=== PATIENT | female | born 1975 | race Caucasian/White ===

== ENCOUNTER 2017-03-28 18:43 | Emergency (ER) | payer BC ==
[~2017-03-28] VITALS: Ht 167.6 cm; Wt 63.6 kg
[~2017-03-28 18:43] MED LIST: AMOX250C; LAMI200T PO; LEVO1CAP4 PO; LORTA5 PO
[2017-03-28 19:39] VITALS: BP 136/76; PULSE 107; RESP 20; TEMP 98.7; O2SAT 98
[2017-03-28] MEDS ORDERED: LIDOCAINE HCL 1% 50 ML VIAL INFIL ONE (19:45)
[2017-03-28] MEDS ORDERED: LEVO1CAP3 PO (19:50)
[2017-03-28] MEDS ORDERED: nasal spray (19:50)
[2017-03-28] MEDS ORDERED: LAMI200T PO (19:50)
[2017-03-28] MEDS ORDERED: SINUS MEDICATION PO (19:50)
[2017-03-28] MEDS ORDERED: ACETAMINOPHEN 325 MG TAB PO ONE (20:00)
--- NOTE | 2017-03-28 20:04 | PD ---
HPI Chief Complaint: Fall Time Seen by Provider: 19:40 Travel History International Travel<30 days: No Contact w/Intl Traveler<30days: No Traveled to known affect area: No History of Present Illness HPI 40-year-old female that presents to the ED for evaluation of fall. Patient was running around and lost her balance and landed on a wall. Per patient she hit her head on the wall. She did not loss consciousness. Patient does have abrasions to the right great toe as well as superficial abrasion to the left knee. She was able to ambulate. She denies any loss of consciousness. Takes no blood thinners. She does have a laceration to the left forehead. She was brought here by ambulance. States that she is able to move her arms and legs. Denies any back or neck pain. She states she has a headache. Per patient the pain is 7 out of 10. Does not radiate. She states that she is up-to-date with her tetanus with the past 5 years. Injury occurred about 2 hours ago. Denies any other medical issues at this time. patient states she had been drinking alcohol today. PFSH Past Medical History Bipolar Disorder: Yes Anxiety: Yes Depression: Yes Cardiovascular Problems: No Diabetes: No Diminished Hearing: No Endocrine: No Genitourinary: No Hiatal Hernia: No Musculoskeletal: No Neurologic: No Psychiatric: Yes (ANXIETY, BIPOLAR) Reproductive: No Respiratory: No Migraines: Yes Thyroid Disease: No Tetanus Vaccination: < 5 Years Influenza Vaccination: No ?: Not Tubal Ligation: Yes Past Surgical History AICD: No Joint Replacement: No Oral Surgery: Yes (WISDOM TEETH EXTRACTED) Pacemaker: No Other Surgery: Yes Social History Alcohol Use: Yes (was drinking today started at 1100) Tobacco Use: No Substance Use: Yes (HX OF SLEEPING PILL ABUSE) Allergies-Medications (Allergen,Severity, Reaction): Coded Allergies: bupropion (Unverified Allergy, Unknown, seizure, 01/27/17) Reported Meds & Prescriptions Reported Meds & Active Scripts Active Reported [nasal spray] BID [Sinus medication] PO BID Lamictal (Lamotrigine) 200 Mg Tab 200 Mg PO DAILY Fetzima ER (Levomilnacipran ER) 40 Mg Caper 40 Mg PO DAILY Review of Systems Except as stated in HPI: all other systems reviewed are Neg Physical Exam Narrative GENERAL: SKIN: Warm and dry. Patient has a superficial about 1.5 cm vertical laceration to the left forehead. HEAD: Atraumatic. Normocephalic. EYES: Pupils equal and round 4 mm reactive to light and accommodation. No scleral icterus. No injection or drainage. ENT: No nasal bleeding or discharge. Mucous membranes pink and moist. Tongue is midline. No uvula deviation. NECK: Trachea midline. No JVD. CARDIOVASCULAR: Regular rate and rhythm. No murmurs, S3, S4. RESPIRATORY: No accessory muscle use. Clear to auscultation. Breath sounds equal bilaterally. GASTROINTESTINAL: Abdomen soft, non-tender, nondistended. Hepatic and splenic margins not palpable. MUSCULOSKELETAL: Extremities without clubbing, cyanosis, or edema. No obvious deformities. Full range of motion of the upper and lower extremities bilaterally. Patient does have a very superficial skin abrasion to the left knee and able to move the knee completely without pain. 2+ pulses bilaterally. Patient also has a very superficial abrasion to the dorsal aspect of the right big toe. No lumbar, thoracic, cervical spine tenderness to palpation. NEUROLOGICAL: Awake and alert. No obvious cranial nerve deficits. Motor grossly within normal limits. Five out of 5 muscle strength in the arms and legs. Normal speech. PSYCHIATRIC: Appropriate mood and affect; insight and judgment normal. Data Data Last Documented VS Vital Signs Date Time Temp Pulse Resp B/P (MAP) Pulse Ox O2 Delivery O2 Flow Rate FiO2 03/28/17 20:34 97 Room Air 03/28/17 19:39 98.7 107 20 136/76 (96) Orders Orders Ct Brain W/O Iv Contrast(Rout) (03/28/17 19:45) Knee, Ltd (1 Or 2vws) (03/28/17 19:45) Toe (Min 2vws) (03/28/17 19:45) Ice/Cold Pack (03/28/17 19:45) Wound Care (03/28/17 19:45) Lidocaine 1% Inj (50 Ml) (Xylocaine 1% I (03/28/17 19:45) Acetaminophen (Tylenol) (03/28/17 20:00) MDM Medical Decision Making Medical Screen Exam Complete: Yes Emergency Medical Condition: Yes Medical Record Reviewed: Yes Interpretation(s) CT head negative xray left knee negative xray right big toe negative Differential Diagnosis Head injury versus laceration versus abrasion versus contusion versus fracture Narrative Course 41-year-old female that presents to the ED for evaluation of fall. Patient was properly examined and was found to have signs and symptoms concerning with fall. Imaging was ordered. Recommend suturing. Patient agrees with this plan. After explained procedure to the patient and she agreed to it laceration was repaired as stated in procedure note. Told to get sutures removed in one week. Wound care was endorsed. Imaging showed no sign of acute disease. Patient was reassured. Patient was told to do wound care. Patient was told that she will likely have some scarring even with treatment. She agrees and understands. Follow with PCP. See ED worsening symptoms. Told to get sutures removed in 7 days. She was given a prescription for bacitracin. Procedures Procedure Narrative LACERATION LOCATION: left forehead LENGTH: 1.5 cm NUMBER OF STITCHES/FAISAL: 7 sutures REPAIR: The area of the laceration was prepped with Betadine and sterilely draped. The laceration was infiltrated with 1% Xylocaine. The wound was copiously irrigated and explored without evidence of foreign body, tendon injury or neurovascular injury. The wound was closed using 5-0 Ethilone. This was a 1 layer repair. A sterile dressing was applied. The patient was advised to keep the dressing clean and dry. Patient tolerated the procedure well. Diagnosis Primary Impression: Head injury Qualified Codes: S09.90XA - Unspecified injury of head, initial encounter Additional Impressions: Laceration of head Qualified Codes: S01.112A - Laceration without foreign body of left eyelid and periocular area, initial encounter Abrasions of multiple sites Patient Instructions: General Instructions Additional Instructions: Wound care daily with soap and water. You can apply bandaid if needed. Neosporyn or OTC antibiotic ointment to area as needed twice a day for at least 2 weeks to help with scarring and prevent infection. Meoderma OTC for scarring if needed. Avoid sun exposure for 2 months as the sun could make scar darker and more noticeable. Get sutures removed in 5-7 days. See ED if worst. Med/Other Pt SpecificInfo: Prescription(s) given, Wound Care Disposition: DISCHARGE HOME Condition: Stable Fabrice Cruz Mar 28, 2017 20:04
[2017-03-28] MEDS ORDERED: BACI500O9 TOPICAL (20:43)
--- NOTE | 2017-03-28 20:52 | RADRPT ---
EXAM DATE/TIME: 03/28/2017 20:07 [facility] COMPARISON: No previous studies available for comparison. INDICATIONS : Fall, knee pain laceration to anterior knee. MEDICAL HISTORY : None. SURGICAL HISTORY : None. ENCOUNTER: Initial ACUITY: 1 day PAIN SCORE: 0/10 LOCATION: Left knee FINDINGS: Two view examination of the left knee demonstrates no evidence of fracture or dislocation. Bony mine ralization is normal. The suprapatellar soft tissues have a normal configuration. CONCLUSION: No acute bony disease or evidence of joint effusion. Ty Turner MD on March 28, 2017 at 20:49 Board Certified Radiologist. This report was verified electronically.
--- NOTE | 2017-03-28 20:53 | RADRPT ---
EXAM DATE/TIME: 03/28/2017 20:08 [facility] COMPARISON: No previous studies available for comparison. INDICATIONS : Hit great toe on wall running. MEDICAL HISTORY : None. SURGICAL HISTORY : None. ENCOUNTER: Initial ACUITY: 1 day PAIN SCORE: 0/10 LOCATION: Right 1st toe FINDINGS: Examination of the first digit of the right foot demonstrates no evidence of fracture or dislocation. No radiopaque foreign bodies are seen. The soft tissues are intact. CONCLUSION: No acute disease. Ty Turner MD on March 28, 2017 at 20:51 Board Certified Radiologist. This report was verified electronically.
--- NOTE | 2017-03-28 20:54 | RADRPT ---
EXAM DATE/TIME: 03/28/2017 20:10 [facility] COMPARISON: CT BRAIN W/O CONTRAST, December 21, 2013, 14:43. INDICATIONS : Trauma, fell and hit left side of face. Laceration to left forehead. RADIATION DOSE: 34.16 CTDIvol (mGy) MEDICAL HISTORY : None SURGICAL HISTORY : Tubal ligation. ENCOUNTER: Initial ACUITY: 1 day PAIN SCALE: 5/10 LOCATION: cranial TECHNIQUE: Multiple contiguous axial images were obtained of the head. Using automated exposure control and adj ustment of the mA and/or kV according to patient size, radiation dose was kept as low as reasonably a chievable to obtain optimal diagnostic quality images. DICOM format image data is available electro nically for review and comparison. FINDINGS: CEREBRUM: The ventricles are normal for age. No evidence of midline shift, mass lesion, hemorrhage or acute in farction. No extra-axial fluid collections are seen. POSTERIOR FOSSA: The cerebellum and brainstem are intact. The 4th ventricle is midline. The cerebellopontine angle i s unremarkable. EXTRACRANIAL: Skin laceration is identified in the left frontal region. The visualized portion of the orbits is int act. SKULL: The calvaria is intact. No evidence of skull fracture. CONCLUSION: Soft tissue laceration left frontal region. No evidence of acute intracranial process. Ty Turner MD on March 28, 2017 at 20:51 Board Certified Radiologist. This report was verified electronically.
== END 2017-03-28 21:20 | disposition home or self-care (01) ==
LOC: NEPC 18:43
DX: S09.90XA Unspecified injury of head, initial encounter (principal); S01.81XA Laceration without foreign body of other part of head, initial encounter; S90.411A Abrasion, right great toe, initial encounter; S80.212A Abrasion, left knee, initial encounter; Z86.59 Personal history of other mental and behavioral disorders; Z86.69 Personal history of other diseases of the nervous system and sense organs; W18.39XA Other fall on same level, initial encounter; Y93.02 Activity, running
CPT/HCPCS: 12011; 70450; 73560; 73660

== ENCOUNTER 2017-08-17 10:08 | Emergency (ER) | payer BC ==
[~2017-08-17] VITALS: Ht 165.1 cm; Wt 72.0 kg
[~2017-08-17 10:08] MED LIST changes: -AMOX250C; +BACI500O9 TOPICAL; +LEVO1CAP3 PO; -LEVO1CAP4 PO; -LORTA5 PO; +SINUS MEDICATION PO; +nasal spray
[2017-08-17 10:33] VITALS: BP 142/79; PULSE 92; RESP 15; TEMP 98.8; O2SAT 99
--- NOTE | 2017-08-17 11:07 | PD ---
HPI Chief Complaint: Fall Time Seen by Provider: 10:50 Travel History International Travel<30 days: No Contact w/Intl Traveler<30days: No Traveled to known affect area: No History of Present Illness HPI Patient comes emergency department for evaluation of facial pain and headache status post mechanical fall down 3 stairs that occurred 2 days ago. Patient reports that there was a Steps causing her to lose her balance falling hitting her face on the ground. Patient denies doing anything for this other than cleaning a wound on her chin. Reports her tetanus shot is up-to-date. Patient describes pain as throbbing-like pain throughout the right side of her face without radiation. Reports headache is throbbing-like in nature as well. Denies anything making symptoms better. Pain is worse with palpation and moving her mandible. Patient denies any dental injuries, neck pain, being on any blood thinners, , chest pain, shortness of breath problems, numbness or tingling anywhere, loss or change of bowel or bladder, or fevers. PFSH Past Medical History Bipolar Disorder: Yes Anxiety: Yes Depression: Yes Cardiovascular Problems: No Diabetes: No Diminished Hearing: No Endocrine: No Genitourinary: No Hiatal Hernia: No Musculoskeletal: No Neurologic: No Psychiatric: Yes (ANXIETY, BIPOLAR) Reproductive: No Respiratory: No Migraines: Yes Thyroid Disease: No ?: Not LMP: ABLATION Tubal Ligation: Yes Past Surgical History AICD: No Joint Replacement: No Oral Surgery: Yes (WISDOM TEETH EXTRACTED) Pacemaker: No Other Surgery: Yes Social History Alcohol Use: Yes (was drinking today started at 1100) Tobacco Use: No Substance Use: Yes (HX OF SLEEPING PILL ABUSE) Allergies-Medications (Allergen,Severity, Reaction): Coded Allergies: bupropion (Unverified Allergy, Unknown, seizure, 08/17/17) Reported Meds & Prescriptions Reported Meds & Active Scripts Active Naprosyn (Naproxen) 500 Mg Tab 500 Mg PO Q12HR PRN Bacitracin Topical 500 Unit/Gm Oint 1 Applic TOPICAL BID 10 Days Reported [nasal spray] BID [Sinus medication] PO BID Lamictal (Lamotrigine) 200 Mg Tab 200 Mg PO DAILY Fetzima ER (Levomilnacipran ER) 40 Mg Caper 40 Mg PO DAILY Review of Systems Except as stated in HPI: all other systems reviewed are Neg Physical Exam Narrative GENERAL: Well-developed, overly nourished, in no acute distress, and non-ill appearing. SKIN: Warm and dry. Ecchymosis noted right periorbital inferior aspect. No crepitus or step-off noted. Patient has a well-healing laceration noted on the inferior aspect of her chin. There is no foreign body or crepitus noted. HEAD: Atraumatic. Normocephalic. No bony point tenderness or crepitus noted throughout the scalp. Patient reports tenderness to palpation in the right lower periorbital and right mandible. EYES: PERRLA. EOMI. No scleral icterus. No injection or drainage. No hyphema. Corneas are clear. No foreign body noted. ENT: No nasal bleeding or discharge. Mucous membranes pink and moist. No bruising under the tongue. No dental injuries noted. No septal hematoma. NECK: Trachea midline. No JVD. Supple. No nuclear rigidity. No midline tenderness or crepitus present over the cervical spine. CARDIOVASCULAR: Radial pulses 2+, intact, and equal bilaterally. Capillary refill less than 2 seconds. RESPIRATORY: No accessory muscle use. No respiratory distress. MUSCULOSKELETAL: No obvious deformities. No clubbing. No cyanosis. No edema. Full range of motion. Shoulder:FROM equal BL with passive flexion, extension, Abduction, Adduction, internal/external rotation, and pronation/supination. Sensation equal BL deltoid muscles. Pulses equal BL distal to injury. Capillary refill less than 2 seconds distal to injury and equal BL. FROM distal to injury and equal BL. Strength distal to injury equal BL. NV intact distal to injury equal BL. Flexion and extension of thumb equal BL. Equal strength and movement with abduction/adductions of BL fingers. Pharmacist Critical Care strength equal BL. NEUROLOGICAL: Awake and alert. No obvious cranial nerve deficits. Motor grossly within normal limits. Normal speech. Normal gait. PSYCHIATRIC: Appropriate mood and affect; insight and judgment normal. Data Data Last Documented VS Vital Signs Date Time Temp Pulse Resp B/P (MAP) Pulse Ox O2 Delivery O2 Flow Rate FiO2 08/17/17 10:33 98.8 92 15 142/79 (100) [address] Brain W/O Iv Contrast(Rout) (08/17/17 ) Ct Facial Bones W/O Iv Cont (08/17/17 ) Wound Care (08/17/17 11:01) Ed Discharge Order (08/17/17 12:09) [facility] Medical Decision Making Medical Screen Exam Complete: Yes Emergency Medical Condition: Yes Interpretation(s) Last Impressions Maxillofacial CT 08/17/17 0000 Signed Impressions: Service Date/Time: Thursday, August 17, 2017 11:37 - CONCLUSION: 1. No acute bony fractures. 2. Mild chronic sinus disease in the right maxillary sinus and left ethmoid sinus. Servando Ward MD Head CT 08/17/17 0000 Signed Impressions: Service Date/Time: Thursday, August 17, 2017 11:37 - CONCLUSION: Normal examination for a patient of this age. No significant change has occurred. Servando Ward MD Differential Diagnosis Fracture, contusion, laceration, abrasion, closed head injury, fall Narrative Course There is no significant jaw pain or tenderness. There is no malocclusion noted subjectively or objectively. There is no bruising under the tongue. There is no significant swelling, tenderness, bruising or deformity of the face to suggest fractures of face or nose. There is no nasal discharge or bleeding and no septal hematoma. There are no visual problems or significant bruising of the midface. There is no evidence to suggest entrapment and there is no facial nerve palsy. There is no flattening of the cheek or altered sensation underneath the eye. The facial bones are stable and nonmobile. The airway is intact. Findings were discussed with the patient. The patient was instructed on pain medication, ice packs and elevation of head. The patient agreed with plan of care and management and will follow up with PCP. The patients laceration however is to old to close primarily. It was discussed with the patient that primary closure at this time would probably result in infection. The risk of infection is to great when the wound can be revised at another time for cosmesis. There was no sign of infection at this time. The patient was instructed to follow up with plastics after healing by secondary intent and at that time may have scar revision. Plan of care was agreed upon. There was no evidence to suggest foreign bodies. Visual and tactile exams were unremarkable. There was no evidence of neurovascular injury as well. The patients wounds were cleaned and dressed. The patient was given signs and symptom warnings for infection, such as increasing pain, redness, swelling, associated heat, pus or fever. The patient was warned of possible unseen foreign body and instructed to return immediately if signs or symptoms develop. The patient was given instructions for timely follow up. The patient agreed with plan of care. Patient in no obvious distress upon re-evaluation. All pertinent Radiology result(s) discussed with patient. Patient was asked if they wanted to speak to my attending, which the patient did not wish to do at this time. Any questions/ concerns in reference to patient diagnosis/condition discussed and clarified prior to patient's discharge. Reinforced sheer importance of close follow up with patient's primary physician or primary care clinic. Instructed patient to return to ED immediately, if symptoms return/worsen. Patient showed understanding of above instructions. Further instructions and recommendations were detailed in discharge paperwork. Patient ambulated without difficulty out of ED at discharge. Diagnosis Primary Impression: Facial contusion Qualified Codes: S00.83XA - Contusion of other part of head, initial encounter Additional Impressions: Chin laceration Qualified Codes: S01.81XA - Laceration without foreign body of other part of head, initial encounter Fall Qualified Codes: W19.XXXA - Unspecified fall, initial encounter Referrals: [facility] Patient Instructions: Facial Contusion (ED), Facial Laceration (ED), Fall Prevention (ED), General Instructions, Laceration Without Closure (ED) Additional Instructions: Follow-up with your primary care physician in 3-5 days for reevaluation. Take all medication as prescribed. Apply ice to affected area 20 min/h as needed for pain. Sleep angle of approximately 30 or higher to decrease pain and bruising. Keep wound dry and clean as possible using soap and water. Use Neosporin to promote healing. Do not soak or submerge wound. Return to the emergency department if symptoms get worse. Med/Other Pt SpecificInfo: Prescription(s) given Scripts Naproxen (Naprosyn) 500 Mg Tab 500 MG PO Q12HR Y for PAIN SCALE 1 TO 10, #14 TAB 0 Refills Prov: Maile Prakash MD 08/17/17 Disposition: 01 DISCHARGE HOME Condition: Stable Tomer Hussein Aug 17, 2017 11:07
--- NOTE | 2017-08-17 11:46 | RADRPT ---
EXAM DATE/TIME: 08/17/2017 11:37 [facility] COMPARISON: CT BRAIN W/O CONTRAST, March 28, 2017, 20:10. INDICATIONS : Trauma. Fell 2 nights ago. Right black eye and chin pain. RADIATION DOSE: 37.71 CTDIvol (mGy) MEDICAL HISTORY : None SURGICAL HISTORY : Tubal ligation. ENCOUNTER: Initial ACUITY: 2 days PAIN SCALE: 4/10 LOCATION: cranial TECHNIQUE: Multiple contiguous axial images were obtained of the head. Using automated exposure control and adj ustment of the mA and/or kV according to patient size, radiation dose was kept as low as reasonably a chievable to obtain optimal diagnostic quality images. DICOM format image data is available electro nically for review and comparison. FINDINGS: CEREBRUM: The ventricles are normal for age. No evidence of midline shift, mass lesion, hemorrhage or acute in farction. No extra-axial fluid collections are seen. POSTERIOR FOSSA: The cerebellum and brainstem are intact. The 4th ventricle is midline. The cerebellopontine angle i s unremarkable. EXTRACRANIAL: The visualized portion of the orbits is intact. SKULL: The calvaria is intact. No evidence of skull fracture. CONCLUSION: Normal examination for a patient of this age. No significant change has occurred. Servando Ward MD on August 17, 2017 at 11:44 Board Certified Radiologist. This report was verified electronically.
--- NOTE | 2017-08-17 11:56 | RADRPT ---
EXAM DATE/TIME: 08/17/2017 11:37 [facility] COMPARISON: No previous studies available for comparison. INDICATIONS : Trauma. Fell 2 nights ago. Right black eye and chin abrasion and pain. RADIATION DOSE: 61.14 CTDIvol (mGy) MEDICAL HISTORY : None SURGICAL HISTORY : Tubal ligation. ENCOUNTER: Initial ACUITY: 2 days PAIN SCORE: 7/10 LOCATION: facial TECHNIQUE: Volumetric scanning of the facial bones was performed. Using automated exposure control and adjustme nt of the mA and/or kV according to patient size, radiation dose was kept as low as reasonably achiev able to obtain optimal diagnostic quality images. DICOM format image data is available electronicall y for review and comparison. FINDINGS: ORBITS: The orbital and infraorbital osseous structures are intact. The retroconal structures have a normal configuration. No radiopaque foreign bodies are seen. NASAL BONE: The nasal bone and maxillary spine are intact ZYGOMATIC ARCHES: Symmetric without evidence of fracture. SINUSES: The maxillary, ethmoid and frontal sinuses are intact. No air-fluid levels seen. Mild mucosal thicke evelio in the right maxillary sinus and left ethmoid sinus. NASAL CAVITY: The nasal septum is intact and midline. The lacrimal ducts are intact. SOFT TISSUES: No radiopaque foreign bodies seen. No soft-tissue swelling is seen. INTRACRANIAL: No intracranial air seen. CRIBIFORM PLATE: Grossly intact. CONCLUSION: 1. No acute bony fractures. 2. Mild chronic sinus disease in the right maxillary sinus and left ethmoid sinus. Servando Ward MD on August 17, 2017 at 11:53 Board Certified Radiologist. This report was verified electronically.
[2017-08-17] MEDS ORDERED: NAPR500 PO (12:08)
== END 2017-08-17 12:29 | disposition home or self-care (01) ==
LOC: NEPK 10:08
DX: S00.83XA Contusion of other part of head, initial encounter (principal); S01.81XA Laceration without foreign body of other part of head, initial encounter; W10.9XXA Fall (on) (from) unspecified stairs and steps, initial encounter
CPT/HCPCS: 70450; 70486; 99283